=== PATIENT | female | born 1950 | race Hispanic/Latino ===

== ENCOUNTER 2018-04-27 08:36 | Inpatient (IN) | payer MEDICAID, SELFPAY ==
[2018-04-27 09:20] LABS: #Basophils 0.1 thou/uL (0.0-0.2); #Eosinphils 0.2 thou/uL (0.0-0.7); #Lymphocytes 1.5 thou/uL (1.20-3.40); #Monocytes 0.5 thou/uL (0.11-0.59); #Neutrophils 5.9 thou/uL (1.40-6.50); %Basophils 0.7 % (0.0-1.0); %Eosinophils 2.8 % (0.0-10.0); %Lymphocytes 18.8 % (21.0-51.0); %Monocytes 5.5 % (0.0-10.0); %Neutrophils 72.2 % (42.0-75.0); Mean Corpuscular HGB CONC 33.5 g/dL (32.0-36.0); Mean Corpuscular Hemoglobin 30.4 pg (27.0-31.0); Mean Corpuscular Volume 90.9 fL (78.0-98.0); Mean Platelet Volume 6.6 fL (7.4-10.4); Platelet Count 245 thou/uL (130-400); Red Blood Cell (RBC) Count 3.63 mill/uL (4.20-5.40); White Blood Cell (WBC) Count 8.1 thou/uL (4.8-10.8)
[2018-04-27 09:26] LABS: ALT (SGPT) 60 U/L (8-55); AST (SGOT) 51 U/L (5-34); Albumin 3.8 g/dL (3.4-4.8); Alkaline Phosphatase 249 U/L (40-150); Anion Gap 12 mmol/L (10-20); BUN (Urea Nitrogen) 11 mg/dL (9.8-20.1); Bilirubin, Total 0.9 mg/dL (0.2-1.2); Calc. Creatinine Clearance 0 mL/min (70-130); Calcium 9.2 mg/dL (7.8-10.44); Carbon Dioxide 25 mmol/L (23-31); Chloride 91 mmol/L (98-107); Estimated GFR-MDRD 63; Globulin 3.8 g/dL (2.4-3.5); Glucose 101 mg/dL (80-115); Potassium 4.6 mmol/L (3.5-5.1); Protein, Total 7.6 g/dL (6.0-8.3); Sodium 123 mmol/L (136-145)
[2018-04-27 10:16] LABS: Bilirubin Negative (Negative); Blood, Urine Trace (Negative); Clarity CLOUDY (Clear); Glucose, Urine (Dipstick) Negative (Negative); Leukocyte Moderate (Negative); Nitrite Positive (Negative); Protein, Urine (Dipstick) 30 mg/dL (Neg-Trace); Specific Gravity, Urine 1.017 (1.002-1.036); Urobilinogen 0.2 mg/dL (0.2-1.0); pH, Urine 6.5 (5.0-9.0)
[2018-04-27 10:18] LABS: Bacteria/HPF 1+ HPF (None Seen); Hyaline Casts/LPF 4-6 HYALINE CAST LPF (0-3 Hyaline); Pathc Cast-AUWi Flag 0.43 (0-2.49); RBC/HPF 0-3 HPF (0-3); Squamous Epithelial None Seen HPF (0-3)
--- NOTE | 2018-04-27 10:28 | RAD ---
PORTABLE CHEST: History: Cough. FINDINGS: Heart size and mediastinum are within normal limits. There are atherosclerotic changes of the aorta. The lungs are clear of infiltrate. Bones appear demineralized. IMPRESSION: No active intrathoracic disease. POS: [facility]
--- NOTE | 2018-04-27 10:49 | CT ---
HEAD CT WITHOUT CONTRAST: History: Weakness. Decreased po intake. Comparison: None. FINDINGS: No parenchymal hemorrhage. No extraaxial hematoma. No midline shift. Basilar cisterns are patent. Age appropriate atrophy. Cortical law white matter differentiation preserved. Ventricles and sulci are patent and symmetric. White matter hypodensities due to chronic small vessel ischemic change. There is left maxillary sinus and ethmoid air cell mucosal thickening. Mucosal thickening of the left sphenoid sinus is also noted. Adequate mastoid air cell aeration. Calvarium is intact. 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 IMPRESSION: No acute intracranial process. POS: [facility]
[2018-04-27] MEDS ORDERED: cefTRIAXone\\ROCEPHIN 2 GM VIAL ONE (10:57)
[2018-04-27] MEDS ORDERED: Acetaminophen 500 MG TAB ONE (11:21)
[2018-04-27] MEDS ORDERED: Benzonatate 100 MG CAP PO PRN (11:51)
[2018-04-27] MEDS ORDERED: Calcium Carbonate 500 MG ChewTAB PO PRN (11:51)
[2018-04-27] MEDS ORDERED: Ondansetron PF 4 MG/2 ML Vial IVP PRN ×2 (11:51)
[2018-04-27] MEDS ORDERED: Diabetic Tussin 200 MG/10 ML UDCUP PO PRN (11:51)
[2018-04-27] MEDS ORDERED: Bisacodyl 10 MG SUPP PR PRN (11:51)
[2018-04-27] MEDS ORDERED: Sodium Chloride 0.65% Nasal 44 ML BOT EA NARE PRN (11:51)
[2018-04-27] MEDS ORDERED: cloNIDine 0.1 MG TAB PO PRN (11:51)
[2018-04-27] MEDS ORDERED: Nitroglycerin 0.4 MG TAB (25 Tab Bottle) SL PRN (11:51)
[2018-04-27] MEDS ORDERED: Bisacodyl 5 MG TAB PO PRN (11:51)
[2018-04-27] MEDS ORDERED: Acetaminophen 650 MG Suppository PR PRN (11:51)
[2018-04-27] MEDS ORDERED: Acetaminophen 500 MG TAB PO PRN (11:51)
[2018-04-27] MEDS ORDERED: Senokot S 8.6-50 MG TAB PO PRN (11:51)
[2018-04-27] MEDS ORDERED: Ibuprofen 200 MG TAB PO PRN (11:51)
[2018-04-27] MEDS ORDERED: hydrALAZINE 20 MG/ML VIAL SLOW IVP PRN (11:51)
[2018-04-27] MEDS ORDERED: Levofloxacin 500 mg/D5W 100 ml Premix Bag ONE (12:02)
--- NOTE | 2018-04-27 14:20 | HP ---
DATE OF ADMISSION: 04/27/2018 CHIEF COMPLAINT: Generalized weakness and seizure. HISTORY OF PRESENTING ILLNESS: Ms. Hampton is a 67-year-old [place] national without any significant past medical history except for seizures, who presented to the emergency room with the above-mention ed complaint. History is mainly obtained by the patient's family members present in the room as the patient is somnolent and [place] speaking only and does not want to participate in the conversation. According to the family members, she has been feeling unwell for the last many months, but presented to [facility] only 2 or 3 days ago, so they decided to bring her here. The main complaint is gene ralized weakness and poor oral intake. They also report that she has been diagnosed with seizures an d has been having seizures at home which seemed to be generalized tonic clonic by their description. They also report that she was told in [place] that she has "worms" in her brain causing her to have s eizures and she should not eat pork. When I further asked them, they said that it has not been treat ed and they do not have any further information with regards to this. She has 1 or 2 episodes of vom iting, but denies any diarrhea or abdominal pain. She also has been having low-grade fevers at home and was febrile in the ER today. The patient denies any chest pain or shortness of breath. She kat es any problems with urination. In the emergency room, she was found to have a fever of 101.2 rectally. Otherwise, hemodynamically s table except for tachycardia with a heart rate of 102-103. She was resuscitated with IV fluids and h er initial workup showed hyponatremia with sodium of 123. Liver enzymes are elevated. Lactic acid i s normal. Urinalysis consistent with UTI. She was given empiric IV antibiotic for UTI, namely Rocephin and levofloxacin, and a CT scan of the b rain was done which did not show any acute or chronic abnormality. She does have some mucosal thicke daphney of her sinuses, but there is no mention of any cysts or calcifications of the brain parenchyma. A chest x-ray was also done which did not show any active intrathoracic disease. She is now being admitted to tele floor for sepsis. The patient has been seen by [facility] since she has presented to [facility]. She has been started on Keppra since then 250 mg twice a day and she had a seizure despite taking that. PAST MEDICAL HISTORY: History of seizures. PAST SURGICAL HISTORY: None. PSYCHIATRIC HISTORY: No anxiety, no depression. SOCIAL HISTORY: She lives normally in [place], but is [place] in the [place] to her [place]. No hist ory of drug, tobacco or alcohol abuse. She has been exposed to cocaine smokes from burning wood. FAMILY HISTORY: Some family members with diabetes. Otherwise, she denies any history of premature c oronary artery disease or stroke or cancers running in her family. REVIEW OF SYSTEMS: A 12-point review of systems is done except for those mentioned in the history an d physical. CODE STATUS: FULL CODE. Discussed with the patient and her family members. LABORATORY DATA: CBC shows WBCs 8.1 with platelet count of 246, hemoglobin 11. Serum chemistry show s sodium of 123, chloride 91, otherwise unremarkable. Her AST is 51, ALT 16, alkaline phosphatase 24 9. Urinalysis shows positive nitrite, leukocyte esterase, multiple wbc's and bacteria. Keppra level is 7.7. PHYSICAL EXAMINATION: VITAL SIGNS: Upon presentation, pulse of 110, respirations 12, saturating 94% on room air, temperatu re max 101.2, blood pressure 143/95. GENERAL: No acute distress, lying comfortably in bed, awake, alert, oriented x3. Follows simple com mands. HEENT: Mucous membranes are slightly dry. No oropharyngeal exudate or erythema. Head is normocepha lic, atraumatic. Pupils are equal and reactive to light and accommodation. Extraocular movement in tact. NECK: Supple without any lymphadenopathy, JVD or bruit. CHEST: Clear to auscultation without any wheezing, rales or rhonchi. Rate and rhythm is regular wit hout any murmur, rubs or gallops. ABDOMEN: Soft, nondistended, nontender, no right upper quadrant tenderness. EXTREMITIES: Free of any cyanosis, clubbing, or edema. NEUROLOGIC: Examination is nonfocal. SKIN: Free of any rashes or bruises. Feels warm and dry to touch. IMPRESSION AND PLAN: 1. Sepsis, likely secondary to urinary tract infection. We will continue her on broad spectrum IV a ntibiotic with high dose Rocephin and vancomycin. Urine culture and blood cultures have been obtaine d in the ER and we will follow the results. No other source is obvious at this time. She will be co ntinued on gentle IV fluids. 2. Hypochloremic hyponatremia. The patient does appear somewhat volume down. She will be resuscita matthew with gentle IV fluids at 50 mL per hour. We will recheck sodium every few hours and consult Neph rology for further evaluation. There is a possibility that this is secondary to SIADH. 3. Elevated liver enzymes. Etiology is unclear at this time. We will obtain right upper quadrant u ltrasound to further assess the liver. The patient does give some history of possible diagnosis of T APE 1. 4. Breakthrough seizures. We will increase the Keppra to 500 p.o. b.i.d. for now. 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 At this time, CT scan did not show any calcificati ons or active cysts. We will obtain MRI for further delineation on diagnosis if this is a true neuro cysticercosis. Continue seizure medication for now. We will also sent IGG for cysticercosis. If th e diagnosis is confirmed, we will consult ID for treatment options including albendazole with prednis one. At this time, I do not believe that her seizures are because of the hyponatremia which seems mo re chronic. 5. Chronic anemia. The patient is on iron supplements and we will continue that for now. 6. Code status: FULL CODE. Discussed with the patient and her family. 7. Deep venous thrombosis and gastrointestinal prophylaxis and supportive care and add p.r.n. medica tions. DISPOSITION: Ms. Hampton is currently being admitted to the hospital for sepsis, breakthrough seizur es and hyponatremia. Estimated length of stay at this time is at least 2-3 midnights. Further manag ement will depend upon her clinical course.
[2018-04-27 14:37] LABS: Sodium 123 mmol/L (136-145)
[2018-04-27] MEDS ORDERED: Vancomycin HCl 1 GM in Premix Bag 1 BAG IVPB SCH ×2 (16:45→21:00)
--- NOTE | 2018-04-27 16:54 | MRI ---
BRAIN MRI WITH AND WITHOUT CONTRAST: Date: 04/27/18 INDICATION: Neurocysticercosis. History of seizure. Reference made to head CT from earlier same day. FINDINGS: There is bilateral periventricular white matter signal alteration. No acute territorial infarction, m ass effect, or midline shift. There is prominence of the ventricular system, which likely relates to parenchymal volume loss. There is no pathologic intra-axial enhancement. There is scattered paranasal sinus mucosal inflammation. Imaged skull base flow-voids reveal no significant abnormality. IMPRESSION: 1. No definite acute intracranial abnormality. 2. Periventricular signal abnormalities which may be related to mild chronic ischemic disease. POS: [facility]
[2018-04-27] MEDS: Sodium Chloride 0.9% 1,000 ML IV SCH (18:07)
[2018-04-27 19:14] VITALS: BMI 22.1
[2018-04-27 20:29] LABS: Sodium 122 mmol/L (136-145)
[2018-04-27] MEDS: Famotidine/PF 20 mg/2ml Vial SLOW IVP SCH (21:12)
[2018-04-27] MEDS: levETIRAcetam 500 MG TAB PO SCH (21:12)
[2018-04-27 22:26] LABS: Osmolality, Urine 593 mOsm/kg (300-900)
[2018-04-27 22:35] LABS: Sodium, Urine 145 mmol/L (Not Available)
--- NOTE | 2018-04-28 04:35 | CON ---
DATE OF CONSULTATION: 04/27/2018 NEPHROLOGY CONSULT NOTE CONSULTING PHYSICIAN: Dr. Turner. REASON FOR CONSULTATION: Hyponatremia. REASON FOR ADMISSION: Weakness. HISTORY OF PRESENT ILLNESS: This is a 67-year-old female with history of seizure disorder, who came to the hospital with weakness and was found to have a low sodium. Nephrology is consulted. Patient's sodium is 123 right now about baseline sodium. Patient was awake when I saw her. No naus ea, vomiting, and no dehydration reported. No fever or chills. PAST MEDICAL HISTORY: Possible seizure disorder. PAST SURGICAL HISTORY: None. HOME MEDICATIONS: Keppra and iron. ALLERGIES: No known drug allergies. SOCIAL HISTORY: No smoking, alcohol, or illicit drug abuse. FAMILY HISTORY: Positive for diabetes. REVIEW OF SYSTEMS: The following complete review of systems was negative, unless otherwise mentioned in the HPI or below: Constitutional: Weight loss or gain, ability to conduct usual activities. Sk in: Rash, itching. Eyes: Double vision, pain. ENT/Mouth: Nose bleeding, neck stiffness, pain, te nderness. Cardiovascular: Palpitations, dyspnea on exertion, orthopnea. Respiratory: Shortness of breath, wheezing, cough, hemoptysis, fever, or night sweats. Gastrointestinal: Poor appetite, abdo pau pain, heartburn, nausea, vomiting, constipation, or diarrhea. Genitourinary: Urgency, frequen cy, dysuria, nocturia. Musculoskeletal: Pain, swelling. Neurologic/Psychiatric: Anxiety, depressi on. Allergy/Immunologic: Skin rash, bleeding tendency. PHYSICAL EXAMINATION: GENERAL: This is a thin-built female in no apparent distress. VITAL SIGNS: Temperature 97.3, pulse 72, respiratory rate 18, blood pressure 152/67. HEENT: Atraumatic, normocephalic. Oral mucosa is moist. NECK: Supple. HEART: S1, S2. Rate and rhythm regular. RESPIRATORY: Clear. GI: Abdomen is soft. MUSCULOSKELETAL: . DERMATOLOGIC: No skin rash. NEUROLOGIC: Alert, awake. PSYCHIATRIC: Mood and affect normal. LABORATORY AND X-RAY FINDINGS: Hemoglobin is 11.0. Potassium is 4.6, sodium 123, BUN is 11, creatin ine is 0.9. Urine with pyuria. ASSESSMENT AND PLAN: 1. Hyponatremia. Check osmolality and urine studies. 2. Hypochloremia. 3. Edema, controlled. 4. Hypertension. 5. Mild anemia. 6. We will check urine studies, we will hydrate her slowly with NS at 50 mL per hour, monitor sodium q.6 hours. We will follow.
[2018-04-28 06:12] LABS: #Eosinphils 0.4 thou/uL (0.0-0.7); #Lymphocytes 1.4 thou/uL (1.20-3.40); #Monocytes 0.4 thou/uL (0.11-0.59); #Neutrophils 3.6 thou/uL (1.40-6.50); %Basophils 0.1 % (0.0-1.0); %Eosinophils 6.3 % (0.0-10.0); %Monocytes 6.8 % (0.0-10.0); %Neutrophils 61.9 % (42.0-75.0); Hemoglobin 10.6 g/dL (12.0-16.0); Mean Corpuscular HGB CONC 33.5 g/dL (32.0-36.0); Mean Corpuscular Hemoglobin 30.6 pg (27.0-31.0); Mean Corpuscular Volume 91.5 fL (78.0-98.0); Mean Platelet Volume 6.7 fL (7.4-10.4); Platelet Count 235 thou/uL (130-400); Red Blood Cell (RBC) Count 3.47 mill/uL (4.20-5.40); White Blood Cell (WBC) Count 5.8 thou/uL (4.8-10.8)
[2018-04-28 06:31] LABS: Anion Gap 13 mmol/L (10-20); BUN (Urea Nitrogen) 7 mg/dL (9.8-20.1); Calc. Creatinine Clearance 42 mL/min (70-130); Calcium 9.3 mg/dL (7.8-10.44); Carbon Dioxide 23 mmol/L (23-31); Chloride 91 mmol/L (98-107); Estimated GFR-MDRD 70; Glucose 90 mg/dL (80-115); Potassium 4.4 mmol/L (3.5-5.1); Sodium 123 mmol/L (136-145)
[2018-04-28 06:49] LABS: Thyroid Stimulating Hormone 2.1637 uIU/mL (0.35-4.94)
[2018-04-28] MEDS ORDERED: Tolvaptan 15 MG TAB PO SCH (07:00)
[2018-04-28] MEDS: levETIRAcetam 500 MG TAB PO SCH ×2 (08:02→20:37)
[2018-04-28] MEDS: Famotidine/PF 20 mg/2ml Vial SLOW IVP SCH ×2 (08:02→20:37)
[2018-04-28] MEDS: Enoxaparin Sodium 40 MG/0.4 ML SYRINGE SC SCH (08:02)
[2018-04-28] MEDS: Sodium Chloride 0.9% 1,000 ML IV SCH ×2 (08:03→17:22)
--- NOTE | 2018-04-28 09:27 | ULT ---
GALLBLADDER ULTRASOUND: Indication: Elevated LFTs FINDINGS: There is increased echogenicity in the liver without evidence of discrete lesion. No acute gallbladde r pathology. Patel's sign is reported as negative. There is normal sized common duct at 2 mm in diam eter. No ascites. IMPRESSION: 1. Increased echogenicity of the liver which can be seen in the setting of hepatic steatosis. 2. No acute gallbladder pathology. POS: [facility]
[2018-04-28] MEDS: cefTRIAXone\\ROCEPHIN 2 GM in Sodium Chloride 0.9% 100 ML IVPB SCH (11:15)
[2018-04-28] MEDS: Acetaminophen 325 MG TAB PO PRN ×2 (11:18→20:43)
--- NOTE | 2018-04-28 11:36 | PRG ---
DATE OF SERVICE: 04/28/2018. SUBJECTIVE: Patient was seen and examined at bedside and overnight events noted. Patient denies any shortness of breath or chest pain or palpitation. No history of nausea or vomiting or diarrhea or f ever or chills or cramps. OBJECTIVE: GENERAL: This is an elderly female in no apparent distress. VITAL SIGNS: Temperature 97.7, pulse 83, respirations 16, blood pressure 151/71. HEENT: Atraumatic, normocephalic. Oral mucosa is moist. NECK: Supple. CARDIOVASCULAR: S1, S2 heard. Rate and rhythm regular. RESPIRATORY: Clear to auscultation. GASTROINTESTINAL: Abdomen is soft. MUSCULOSKELETAL: No tenderness, no edema. DERMATOLOGIC: No skin rash. NEUROLOGIC: Alert and awake and oriented x3. No focal neurologic deficits. Moving all the extremit ies. PSYCHIATRIC: Mood and affect normal. LABORATORY DATA: Sodium is 123. Cortisol TSH is 2.1. Urine osmolality is 145. Serum osmolal ity is . ASSESSMENT AND PLAN: 1. Hyponatremia. Clinical picture and lab work suggests syndrome of inappropriate antidiuretic horm one secretion. No improvement with IV fluids. Plan is to continue IV fluids per sepsis protocol, bu t we would add tolvaptan and we will follow. 2. Hypochloremia. 3. Edema, controlled. 4. Hypertension. Plan is to start on tolvaptan with close monitoring of sodium.
[2018-04-28] MEDS ORDERED: Vancomycin HCl 500 MG in Sodium Chloride 0.9% 100 ML IVPB SCH (18:00)
[2018-04-29 05:22] LABS: Potassium 4.1 mmol/L (3.5-5.1)
[2018-04-29 08:45] LABS: Anion Gap 11 mmol/L (10-20); BUN (Urea Nitrogen) 6 mg/dL (9.8-20.1); Calc. Creatinine Clearance 42 mL/min (70-130); Calcium 9.3 mg/dL (7.8-10.44); Carbon Dioxide 26 mmol/L (23-31); Chloride 109 mmol/L (98-107); Estimated GFR-MDRD 68; Glucose 100 mg/dL (80-115); Potassium 3.9 mmol/L (3.5-5.1); Sodium 142 mmol/L (136-145)
[2018-04-29] MEDS: Famotidine/PF 20 mg/2ml Vial SLOW IVP SCH (09:40)
[2018-04-29] MEDS: levETIRAcetam 500 MG TAB PO SCH ×2 (09:40→20:34)
[2018-04-29] MEDS: Enoxaparin Sodium 40 MG/0.4 ML SYRINGE SC SCH (09:40)
[2018-04-29] MEDS: cefTRIAXone\\ROCEPHIN 2 GM in Sodium Chloride 0.9% 100 ML IVPB SCH (12:14)
[2018-04-29] MEDS: Dextrose 5% in Water 500 ML IV SCH ×2 (12:14→16:17)
[2018-04-29 13:15] LABS: Potassium 4.2 mmol/L (3.5-5.1)
--- NOTE | 2018-04-29 14:14 | PDOC.PN ---
- Subjective Encounter Start Date: 04/28/18 Encounter Start Time: 12:15 Subjective: pt up in bed no complains - Objective Vital Signs & Weight: Vital Signs (12 hours) Temp Pulse Resp BP BP Pulse Ox 04/29/18 12:10 98.3 F 90 16 136/65 95 04/29/18 07:35 94 L 04/29/18 07:34 97.5 F L 94 16 147/72 H 94 L 04/29/18 04:00 97.7 F 85 20 152/71 H 95 Weight Weight 90 lb 11.2 oz I&O: 04/28/18 04/29/18 04/30/18 06:59 06:59 06:59 Intake Total 140 1750 Balance 140 1750 Result Diagrams: 04/28/18 05:32 04/29/18 11:47 Phys Exam - Physical Examination Neck: no nodes, no JVD, supple, full ROM Respiratory: no wheezing, no rales, no rhonchi, wheezing present, clear to auscultation bilateral Cardiovascular: RRR, no significant murmur, no rub, gallop, irregular Gastrointestinal: soft, non-tender, no distention, positive bowel sounds Musculoskeletal: no edema, pulses present, edema present Dx/Plan (1) Acute metabolic encephalopathy Code(s): G93.41 - METABOLIC ENCEPHALOPATHY Status: Acute (2) Hyponatremia Code(s): E87.1 - HYPO-OSMOLALITY AND HYPONATREMIA Status: Acute (3) UTI (urinary tract infection) Status: Acute - Plan pt up in bed feels better -: SIADH unknown etiology -: continue abx for now will will change to po * . Review of Systems - Review of Systems Respiratory: negative: Cough, Dry, Shortness of Breath, Hemoptysis, SOB with Excertion, Pleuritic Pain, Sputum, Wheezing Cardiovascular: negative: chest pain, palpitations, orthopnea, paroxysmal nocturnal dyspnea, edema, light headedness, other Gastrointestinal: negative: Nausea, Vomiting, Abdominal Pain, Diarrhea, Constipation, Melena, Hematochezia, Other - Medications/Allergies Allergies/Adverse Reactions: Allergies Allergy/AdvReac Type Severity Reaction Status Date / Time No Known Drug Allergies Allergy Verified 04/27/18 19:12 Medications: Current Medications Acetaminophen (Tylenol) 650 mg PO Q4H PRN PRN Reason: Headache/Fever/Mild Pain (1-3) Last Admin: 04/28/18 20:43 Dose: 650 mg Acetaminophen (Tylenol) 650 mg [place] Q4H PRN PRN Reason: Fever > 101 Benzonatate (Tessalon) 100 mg PO Q6H PRN PRN Reason: Cough Bisacodyl (Dulcolax) 10 mg PO DAILYPRN PRN PRN Reason: Constipation Bisacodyl (Dulcolax) 10 mg [place] DAILYPRN PRN PRN Reason: Constipation Calcium Carbonate (Tums) 1,000 mg PO Q4H PRN PRN Reason: Heartburn or Indigestion Clonidine (Catapres) 0.1 mg PO Q4H PRN PRN Reason: SBP > 160____ Enoxaparin Sodium (Lovenox) 40 mg SC 0900 [facility] Last Admin: 04/29/18 09:40 Dose: 40 mg Famotidine (Pepcid) 20 mg SLOW IVP Q12HR [facility] Last Admin: 04/29/18 09:40 Dose: 20 mg Guaifenesin (Robitussin Sf) 200 mg PO Q4H PRN PRN Reason: Cough Hydralazine HCl (Apresoline) 10 mg SLOW IVP Q4H PRN PRN Reason: SBP > 180 and HR < 70 Ceftriaxone Sodium 2 gm/ (Sodium Chloride) 100 mls @ 200 mls/hr IVPB Q24HR@ 1100 [facility] Last Admin: 04/29/18 12:14 Dose: 100 mls Dextrose/Water (D5w) 500 mls @ 100 mls/hr IV .Q5H [facility] Last Admin: 04/29/18 12:14 Dose: 500 mls Ibuprofen (Motrin) 400 mg PO Q4H PRN PRN Reason: Fever > 101 Levetiracetam (Keppra) 500 mg PO BID [facility] Last Admin: 04/29/18 09:40 Dose: 500 mg Miscellaneous Medication (Pharmacy To Dose) 1 each IVPB PRN PRN PRN Reason: SEPSIS Nitroglycerin (Nitrostat) 0.4 mg SL Q5MIN PRN PRN Reason: Chest Pain Ondansetron HCl (Zofran) 4 mg IVP Q6H PRN PRN Reason: Nausea/Vomiting Senna/Docusate Sodium (Senokot S) 2 tab PO BID PRN PRN Reason: Constipation Sodium Chloride ([place] Nasal [place] 0.65%) 0 ml EA NARE QIDPRN PRN PRN Reason: Nasal Congestion
--- NOTE | 2018-04-29 14:20 | PDOC.PN ---
- Subjective Encounter Start Date: 04/29/18 Encounter Start Time: 10:30 Subjective: pt up in bed no complains - Objective Vital Signs & Weight: Vital Signs (12 hours) Temp Pulse Resp BP BP Pulse Ox 04/29/18 12:10 98.3 F 90 16 136/65 95 04/29/18 07:35 94 L 04/29/18 07:34 97.5 F L 94 16 147/72 H 94 L 04/29/18 04:00 97.7 F 85 20 152/71 H 95 Weight Weight 90 lb 11.2 oz I&O: 04/28/18 04/29/18 04/30/18 06:59 06:59 06:59 Intake Total 140 1750 Balance 140 1750 Result Diagrams: 04/28/18 05:32 04/29/18 11:47 Phys Exam - Physical Examination Neck: no nodes, no JVD, supple, full ROM Respiratory: no wheezing, no rales, no rhonchi, wheezing present, clear to auscultation bilateral Cardiovascular: RRR, no significant murmur, no rub, gallop, irregular Gastrointestinal: soft, non-tender, no distention, positive bowel sounds Dx/Plan (1) Acute metabolic encephalopathy Code(s): G93.41 - METABOLIC ENCEPHALOPATHY Status: Acute (2) Hyponatremia Code(s): E87.1 - HYPO-OSMOLALITY AND HYPONATREMIA Status: Acute (3) UTI (urinary tract infection) Status: Acute - Plan pt's Na is 140 called nephrology will give pt d5w for 500. -: will change abx to po -: possible diacharge in am * . Review of Systems - Review of Systems Respiratory: negative: Cough, Dry, Shortness of Breath, Hemoptysis, SOB with Excertion, Pleuritic Pain, Sputum, Wheezing Cardiovascular: negative: chest pain, palpitations, orthopnea, paroxysmal nocturnal dyspnea, edema, light headedness, other Gastrointestinal: negative: Nausea, Vomiting, Abdominal Pain, Diarrhea, Constipation, Melena, Hematochezia, Other - Medications/Allergies Allergies/Adverse Reactions: Allergies Allergy/AdvReac Type Severity Reaction Status Date / Time No Known Drug Allergies Allergy Verified 04/27/18 19:12 Medications: Current Medications Acetaminophen (Tylenol) 650 mg PO Q4H PRN PRN Reason: Headache/Fever/Mild Pain (1-3) Last Admin: 04/28/18 20:43 Dose: 650 mg Acetaminophen (Tylenol) 650 mg [place] Q4H PRN PRN Reason: Fever > 101 Benzonatate (Tessalon) 100 mg PO Q6H PRN PRN Reason: Cough Bisacodyl (Dulcolax) 10 mg PO DAILYPRN PRN PRN Reason: Constipation Bisacodyl (Dulcolax) 10 mg [place] DAILYPRN PRN PRN Reason: Constipation Calcium Carbonate (Tums) 1,000 mg PO Q4H PRN PRN Reason: Heartburn or Indigestion Clonidine (Catapres) 0.1 mg PO Q4H PRN PRN Reason: SBP > 160____ Enoxaparin Sodium (Lovenox) 40 mg SC 0900 [facility] Last Admin: 04/29/18 09:40 Dose: 40 mg Famotidine (Pepcid) 20 mg SLOW IVP Q12HR [facility] Last Admin: 04/29/18 09:40 Dose: 20 mg Guaifenesin (Robitussin Sf) 200 mg PO Q4H PRN PRN Reason: Cough Hydralazine HCl (Apresoline) 10 mg SLOW IVP Q4H PRN PRN Reason: SBP > 180 and HR < 70 Ceftriaxone Sodium 2 gm/ (Sodium Chloride) 100 mls @ 200 mls/hr IVPB Q24HR@ 1100 [facility] Last Admin: 04/29/18 12:14 Dose: 100 mls Dextrose/Water (D5w) 500 mls @ 100 mls/hr IV .Q5H [facility] Last Admin: 04/29/18 12:14 Dose: 500 mls Ibuprofen (Motrin) 400 mg PO Q4H PRN PRN Reason: Fever > 101 Levetiracetam (Keppra) 500 mg PO BID [facility] Last Admin: 04/29/18 09:40 Dose: 500 mg Miscellaneous Medication (Pharmacy To Dose) 1 each IVPB PRN PRN PRN Reason: SEPSIS Nitroglycerin (Nitrostat) 0.4 mg SL Q5MIN PRN PRN Reason: Chest Pain Ondansetron HCl (Zofran) 4 mg IVP Q6H PRN PRN Reason: Nausea/Vomiting Senna/Docusate Sodium (Senokot S) 2 tab PO BID PRN PRN Reason: Constipation Sodium Chloride ([place] Nasal [place] 0.65%) 0 ml EA NARE QIDPRN PRN PRN Reason: Nasal Congestion
[2018-04-29] MEDS ORDERED: Furosemide 20 MG/2 ML VIAL SLOW IVP SCH (15:45)
--- NOTE | 2018-04-29 17:09 | PRG ---
DATE OF SERVICE: 04/29/2018 SUBJECTIVE: Patient was seen and examined at bedside and overnight events noted. Patient denies any shortness of breath or chest pain or palpitation. No history of nausea or vomiting or diarrhea or fever or chills or cramps. OBJECTIVE: GENERAL: This is an elderly female, in no apparent distress. VITAL SIGNS: Temperature 98.3, heart rate 92, respiratory rate 16, blood pressure 136/60. HEENT: Atraumatic, normocephalic. Oral mucosa is moist NECK: Supple. CARDIOVASCULAR: S1, S2 heard. Rate and rhythm regular. RESPIRATORY: Clear to auscultation. GASTROINTESTINAL: Abdomen is soft. MUSCULOSKELETAL: No tenderness. No edema. DERMATOLOGIC: No skin rash. NEUROLOGIC: Alert and awake and oriented X3. No focal neurologic deficits. Moving all the extremities. PSYCHIATRIC: Mood and affect normal. LABORATORY DATA: Sodium is 140, potassium is 4.2. ASSESSMENT AND PLAN: 1. Hyponatremia with overcorrection in sodium. Plan is to give D5W today 500 mL and monitor sodium closely. 2. . 3. Hypertension, stable. We will lower the sodium . Plan discussed with Dr. Mancini. Job ID: [id number]
[2018-04-29 17:36] LABS: Vancomycin, Trough 6.1 ug/mL
[2018-04-29 18:56] LABS: Potassium 3.5 mmol/L (3.5-5.1)
[2018-04-29] MEDS: Cefuroxime Axetil 250 MG TAB PO SCH (20:34)
[2018-04-30 05:50] LABS: Anion Gap 12 mmol/L (10-20); BUN (Urea Nitrogen) 8 mg/dL (9.8-20.1); Calc. Creatinine Clearance 39 mL/min (70-130); Calcium 9.2 mg/dL (7.8-10.44); Carbon Dioxide 27 mmol/L (23-31); Chloride 101 mmol/L (98-107); Estimated GFR-MDRD 68; Glucose 92 mg/dL (80-115); Potassium 3.9 mmol/L (3.5-5.1); Sodium 136 mmol/L (136-145)
[2018-04-30] MEDS: levETIRAcetam 500 MG TAB PO SCH ×2 (08:40→20:53)
[2018-04-30] MEDS: Enoxaparin Sodium 40 MG/0.4 ML SYRINGE SC SCH (08:40)
[2018-04-30] MEDS: Cefuroxime Axetil 250 MG TAB PO SCH ×2 (08:40→20:53)
[2018-04-30] MEDS ORDERED: predniSONE 20 MG TAB PO SCH (10:00)
[2018-04-30 11:22] LABS: Cysticercus IgG AB Negative (Negative)
--- NOTE | 2018-04-30 11:26 | PRG ---
DATE OF SERVICE: 04/30/2018 SUBJECTIVE: Patient was seen and examined at bedside and overnight events noted. Patient denies any shortness of breath or chest pain or palpitation. No history of nausea or vomiting or diarrhea or fever or chills or cramps. OBJECTIVE: GENERAL: This is a well-built female, in no apparent distress. VITAL SIGNS: Temperature . HEENT: Atraumatic, normocephalic. Oral mucosa is moist NECK: Supple. CARDIOVASCULAR: S1, S2 heard. Rate and rhythm regular. RESPIRATORY: Clear to auscultation. GASTROINTESTINAL: Abdomen is soft. MUSCULOSKELETAL: No tenderness. No edema. DERMATOLOGIC: No skin rash. NEUROLOGIC: Alert and awake and oriented X3. No focal neurologic deficits. Moving all the extremities. PSYCHIATRIC: Mood and affect normal. LABORATORY DATA: Potassium is 3.9, sodium is ASSESSMENT AND PLAN: 1. Hyponatremia with adequate correction. 2. Hypochloremia. 3. Hypertension. 4. Edema, controlled. Sodium level is stable. We will follow. Job ID: [id number]
--- NOTE | 2018-04-30 14:04 | PDOC.PN ---
- Subjective Encounter Start Date: 04/30/18 Encounter Start Time: 10:30 Subjective: pt up in bed no complains - Objective Vital Signs & Weight: Vital Signs (12 hours) Temp Pulse Resp BP BP Pulse Ox 04/30/18 11:29 84 16 95 04/30/18 11:06 97.7 F 82 18 140/64 94 L 04/30/18 07:26 98.6 F 90 16 120/58 L 97 04/30/18 04:00 98.7 F 94 15 117/62 96 Weight Weight 84 lb 9.6 oz I&O: 04/29/18 04/30/18 05/01/18 06:59 06:59 06:59 Intake Total 1750 2256 Balance 1750 2256 Result Diagrams: 04/28/18 05:32 04/30/18 05:16 Phys Exam - Physical Examination Neck: no nodes, no JVD, supple, full ROM Respiratory: wheezing present Cardiovascular: RRR, no significant murmur, no rub, gallop, irregular Gastrointestinal: soft, non-tender, no distention, positive bowel sounds Dx/Plan (1) Acute metabolic encephalopathy Code(s): G93.41 - METABOLIC ENCEPHALOPATHY Status: Acute (2) Hyponatremia Code(s): E87.1 - HYPO-OSMOLALITY AND HYPONATREMIA Status: Acute (3) UTI (urinary tract infection) Status: Acute - Plan pt has no smoking hx but has been using wood burner for cooking -: will start pt on some steroids and duonebs -: continue po abx for uti -: possible discharge in am * . Review of Systems - Review of Systems Cardiovascular: negative: chest pain, palpitations, orthopnea, paroxysmal nocturnal dyspnea, edema, light headedness, other Gastrointestinal: negative: Nausea, Vomiting, Abdominal Pain, Diarrhea, Constipation, Melena, Hematochezia, Other Genitourinary: negative: Dysuria, Frequency, Incontinence, Hematuria, Retention , Other - Medications/Allergies Allergies/Adverse Reactions: Allergies Allergy/AdvReac Type Severity Reaction Status Date / Time No Known Drug Allergies Allergy Verified 04/27/18 19:12 Medications: Current Medications Acetaminophen (Tylenol) 650 mg PO Q4H PRN PRN Reason: Headache/Fever/Mild Pain (1-3) Last Admin: 04/28/18 20:43 Dose: 650 mg Acetaminophen (Tylenol) 650 mg [place] Q4H PRN PRN Reason: Fever > 101 Albuterol/Ipratropium (Duoneb) 3 ml NEB [id number] [facility] Last Admin: 04/30/18 11:29 Dose: 3 ml Atorvastatin Calcium (Lipitor) 10 mg PO HS [facility] Benzonatate (Tessalon) 100 mg PO Q6H PRN PRN Reason: Cough Bisacodyl (Dulcolax) 10 mg PO DAILYPRN PRN PRN Reason: Constipation Bisacodyl (Dulcolax) 10 mg [place] DAILYPRN PRN PRN Reason: Constipation Calcium Carbonate (Tums) 1,000 mg PO Q4H PRN PRN Reason: Heartburn or Indigestion Cefuroxime Axetil (Ceftin) 250 mg PO Q12HR [facility] Last Admin: 04/30/18 08:40 Dose: 250 mg Clonidine (Catapres) 0.1 mg PO Q4H PRN PRN Reason: SBP > 160____ Enoxaparin Sodium (Lovenox) 40 mg SC 0900 [facility] Last Admin: 04/30/18 08:40 Dose: 40 mg Guaifenesin (Robitussin Sf) 200 mg PO Q4H PRN PRN Reason: Cough Hydralazine HCl (Apresoline) 10 mg SLOW IVP Q4H PRN PRN Reason: SBP > 180 and HR < 70 Ibuprofen (Motrin) 400 mg PO Q4H PRN PRN Reason: Fever > 101 Levetiracetam (Keppra) 500 mg PO BID [facility] Last Admin: 04/30/18 08:40 Dose: 500 mg Nitroglycerin (Nitrostat) 0.4 mg SL Q5MIN PRN PRN Reason: Chest Pain Ondansetron HCl (Zofran) 4 mg IVP Q6H PRN PRN Reason: Nausea/Vomiting Prednisone (Prednisone) 40 mg PO QAM-WM [facility] Senna/Docusate Sodium (Senokot S) 2 tab PO BID PRN PRN Reason: Constipation Sodium Chloride ([place] Nasal [place] 0.65%) 0 ml EA NARE QIDPRN PRN PRN Reason: Nasal Congestion
[2018-04-30] MEDS ORDERED: Atorvastatin Calcium 10 MG TAB PO SCH (21:00)
[2018-05-01] MEDS ORDERED: predniSONE 20 MG TAB PO SCH (08:00)
[2018-05-01] MEDS: Enoxaparin Sodium 40 MG/0.4 ML SYRINGE SC SCH (09:33)
[2018-05-01] MEDS: levETIRAcetam 500 MG TAB PO SCH (09:33)
[2018-05-01] MEDS: Cefuroxime Axetil 250 MG TAB PO SCH (09:33)
[2018-05-01 11:02] LABS: Anion Gap 13 mmol/L (10-20); BUN (Urea Nitrogen) 9 mg/dL (9.8-20.1); Calc. Creatinine Clearance 39 mL/min (70-130); Calcium 9.8 mg/dL (7.8-10.44); Carbon Dioxide 27 mmol/L (23-31); Chloride 98 mmol/L (98-107); Estimated GFR-MDRD 68; Glucose 110 mg/dL (80-115); Potassium 3.2 mmol/L (3.5-5.1); Sodium 135 mmol/L (136-145)
[2018-05-01 12:06] VITALS: BP 120/57; TEMP 98
--- NOTE | 2018-05-01 16:27 | PRG ---
DATE OF SERVICE: 05/01/2018 SUBJECTIVE: Patient was seen and examined at bedside and overnight events noted. Patient denies any shortness of breath or chest pain or palpitation. No history of nausea or vomiting or diarrhea or fever or chills or cramps. OBJECTIVE: GENERAL: This is a well-built female, in no apparent distress. VITAL SIGNS: Temperature 97, heart rate 100, respiratory rate 20, blood pressure 120/57. HEENT: Atraumatic, normocephalic. Oral mucosa is moist NECK: Supple. CARDIOVASCULAR: S1, S2 heard. Rate and rhythm regular. RESPIRATORY: Clear to auscultation. GASTROINTESTINAL: Abdomen is soft. MUSCULOSKELETAL: No tenderness. No edema. DERMATOLOGIC: No skin rash. NEUROLOGIC: Alert and awake and oriented X3. No focal neurologic deficits. Moving all the extremities. PSYCHIATRIC: Mood and affect normal. LABORATORY DATA: Potassium is 3.2, BUN is 13, creatinine is 0.8. ASSESSMENT AND PLAN: 1. Hyponatremia, stable. 2. Hypochloremia, stable. 3. Hypertension. 4. Mild hyperkalemia. 5. Edema, controlled. Limit fluid take. Followup with primary care. Job ID: [id number]
--- NOTE | 2018-05-02 05:54 | DIS ---
DATE OF ADMISSION: 04/27/2018 DATE OF DISCHARGE: 05/01/2018 DISCHARGE DIAGNOSES: 1. Acute metabolic encephalopathy. 2. Hyponatremia. 3. Urinary tract infection. 4. Sepsis. 5. Seizure. HOSPITAL COURSE: The patient is a very pleasant 67-year-old female, who is a [place] resident, who came into the hospital for altered mental status, who presented to the hospital with acute metabolic encephalopathy. 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 She was seen by the Nephrology and was given Tolvaptan, which increased her sodium dramatically. Given her history of seizures, her Keppra was also increased to 500 mg b.i.d. 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 At this time, CT head was done and also followed by an MRI brain. The MRI brain did not indicate any abnormalities, it just indicates a perivascular signal abnormalities, which may be related to mild chronic ischemic disease. The patient continued to improve throughout the hospital stay. Also she had some mild rhonchi that was noted in her lung area. At this time, she was put on some Medrol Dosepak and also was put on some DuoNebs. The patient does use a stove oven to cook back home in [place]. I have told the family to follow up the patient with the primary care doctor. She also had an abdominal ultrasound which did not indicate any acute abnormalities. It indicated only increased echogenicity of the liver consistent with hepatic steatosis and no gallbladder pathology. I did notify the family about the hepatic steatosis and recommended a low fat diet. PHYSICAL EXAMINATION: VITAL SIGNS: Temperature of 98, pulse 100, respirations 20, blood pressure 120/57. GENERAL: She is awake, alert, and oriented x3. Does not appear in any distress. CV: S1 and S2 present. No murmurs, rubs, or gallops. LUNGS: She has mild rhonchi, which has much greatly improved. EXTREMITIES: No edema. Pedal pulses are present x2. NEUROVASCULAR: No focal deficits noted. HOME MEDICATIONS: 1. Atorvastatin 10 mg at bedtime. 2. Ceftin 250 mg b.i.d. 3. Pepcid 20 mg b.i.d. 4. DuoNebs 3 mL neb q.i.d. p.r.n. 5. Keppra 500 mg b.i.d. 6. Medrol Dosepak 4 mg one pack. 7. Iron 18 mg p.o. daily. FOLLOWUP: Again, she will follow up with her primary care doctor as an outpatient. The patient also is advised to eat banana everyday for mild low potassium. Job ID: [id number]
== END 2018-05-01 13:15 | disposition home or self-care (01) | DRG 871 ==
LOC: ERS 08:36 → EDBD 11:50 → ERHOLD 11:50 → 2NO 17:06
PROVIDERS: ADMIT Internal Medicine; ATTEND Internal Medicine
DX: A41.9 Sepsis, unspecified organism (principal); G93.41 Metabolic encephalopathy; N39.0 Urinary tract infection, site not specified; E22.2 Syndrome of inappropriate secretion of antidiuretic hormone; K76.0 Fatty (change of) liver, not elsewhere classified; G40.909 Epilepsy, unspecified, not intractable, without status epilepticus; E87.8 Other disorders of electrolyte and fluid balance, not elsewhere classified; R60.9 Edema, unspecified; D64.9 Anemia, unspecified
CPT/HCPCS: 36415; 51701; 70450; 70553; 71045; 76705; 80048; 80053; 80177; 80202; 81003; 81015; 82533; 83605; 83880; 83930; 83935; 84132; 84182; 84295; 84300; 84443; 85025; 87040; 87077; 87086; 87186; 93005; 94640; 96360; 96365; 96367; A4353; G8978-GP-CJ; G8978-GP-CL; G8979-GP-CI; G8979-GP-CJ; G8987-GO-CJ; G8988-GO-CI; J0696; J1650; J1940; J1956; J3370; J7050; J7506; J7620; S0028

== ENCOUNTER 2023-03-14 12:56 | Inpatient (IN) | payer MEDICAID, SELFPAY ==
[2023-03-14 13:23] LABS: #Eosinphils 0.1 thou/uL (0.0-0.7); #Monocytes 0.5 thou/uL (0.11-0.59); #Neutrophils 7.5 thou/uL (1.40-6.50); %Basophils 0.4 % (0.0-1.0); %Eosinophils 1.2 % (0.0-10.0); %Monocytes 5.3 % (0.0-10.0); %Neutrophils 76.7 % (42.0-75.0); Hematocrit 32.2 % (36.0-47.0); Hemoglobin 11.2 g/dL (12.0-16.0); Mean Corpuscular HGB CONC 34.8 g/dL (32.0-36.0); Mean Corpuscular Hemoglobin 29.6 pg (27.0-31.0); Mean Corpuscular Volume 85.2 fl (78.0-98.0); Platelet Count 328 10x3/uL (130-400); RBC Distribution Width 13.2 % (11.5-14.5); Red Blood Cell (RBC) Count 3.78 mill/uL (4.20-5.40); White Blood Cell (WBC) Count 9.8 10x3/uL (4.8-10.8)
[2023-03-14 13:36] LABS: INR-International Normal Ratio 0.9; Prothrombin Time 12.6 sec (12.0-14.7)
[2023-03-14 13:43] LABS: ALT (SGPT) 12 U/L (8-55); AST (SGOT) 23 U/L (5-34); Albumin 4.8 g/dL (3.4-4.8); Alkaline Phosphatase 142 U/L (40-110); Anion Gap 15 mmol/L (10-20); BUN (Urea Nitrogen) 8 mg/dL (9.8-20.1); Bilirubin, Total 0.5 mg/dL (0.2-1.2); CK (CPK) 102 U/L (29-168); Calc. Creatinine Clearance 0 mL/min (70-130); Calcium 9.4 mg/dL (7.8-10.44); Carbon Dioxide 22 mmol/L (23-31); Chloride 87 mmol/L (98-107); Estimated GFR 59; Globulin 3.3 g/dL (2.4-3.5); Glucose 127 mg/dL (83-110); Potassium 4.2 mmol/L (3.5-5.1); Protein, Total 8.1 g/dL (5.8-8.1); Sodium 120 mmol/L (136-145)
[2023-03-14] MEDS ORDERED: Ondansetron PF 4 MG/2 ML Vial ONE (13:55)
[2023-03-14] MEDS ORDERED: levETIRAcetam 500 MG/5 ML VIAL ONE (13:55)
[2023-03-14] MEDS ORDERED: Acetaminophen 500 MG TAB ONE (14:34)
[2023-03-14] MEDS ORDERED: Acetaminophen 325 MG TAB PO PRN (15:42)
[2023-03-14] MEDS ORDERED: HYDROcodone/Acetaminophen 5/325 mg Tablet PO PRN (15:42)
[2023-03-14] MEDS ORDERED: Ondansetron PF 4 MG/2 ML Vial IVP PRN (15:42)
[2023-03-14 17:57] VITALS: BMI 17.6
[2023-03-14 18:56] LABS: Anion Gap 10 mmol/L (10-20); BUN (Urea Nitrogen) 7 mg/dL (9.8-20.1); Calc. Creatinine Clearance 38 mL/min (70-130); Calcium 8.3 mg/dL (7.8-10.44); Carbon Dioxide 24 mmol/L (23-31); Chloride 89 mmol/L (98-107); Estimated GFR 76; Glucose 115 mg/dL (83-110); Potassium 4.1 mmol/L (3.5-5.1)
[2023-03-14 19:14] LABS: Sodium 119 mmol/L (136-145)
[2023-03-14] MEDS ORDERED: Sodium Chloride 3% 100 ML IVPB SCH (20:00)
[2023-03-14] MEDS: levETIRAcetam 500 MG TAB PO SCH (20:26)
[2023-03-14 22:00] LABS: Anion Gap 11 mmol/L (10-20); BUN (Urea Nitrogen) 8 mg/dL (9.8-20.1); Calc. Creatinine Clearance 39 mL/min (70-130); Calcium 8.2 mg/dL (7.8-10.44); Carbon Dioxide 21 mmol/L (23-31); Chloride 91 mmol/L (98-107); Estimated GFR 78; Glucose 110 mg/dL (83-110); Potassium 3.6 mmol/L (3.5-5.1)
[2023-03-14 22:13] LABS: Sodium 119 mmol/L (136-145)
[2023-03-15 02:16] LABS: Anion Gap 12 mmol/L (10-20); BUN (Urea Nitrogen) 9 mg/dL (9.8-20.1); Calc. Creatinine Clearance 38 mL/min (70-130); Calcium 8.2 mg/dL (7.8-10.44); Carbon Dioxide 22 mmol/L (23-31); Chloride 92 mmol/L (98-107); Estimated GFR 75; Glucose 116 mg/dL (83-110); Potassium 3.7 mmol/L (3.5-5.1); Sodium 122 mmol/L (136-145)
[2023-03-15 05:06] LABS: #Eosinphils 0.2 thou/uL (0.0-0.7); #Monocytes 0.3 thou/uL (0.11-0.59); #Neutrophils 2.7 thou/uL (1.40-6.50); %Basophils 0.6 % (0.0-1.0); %Eosinophils 4.3 % (0.0-10.0); %Lymphocytes 30.4 % (21.0-51.0); %Monocytes 6.6 % (0.0-10.0); %Neutrophils 57.9 % (42.0-75.0); Hematocrit 25.8 % (36.0-47.0); Mean Corpuscular HGB CONC 34.9 g/dL (32.0-36.0); Mean Corpuscular Hemoglobin 29.6 pg (27.0-31.0); Mean Corpuscular Volume 84.9 fl (78.0-98.0); Mean Platelet Volume 8.8 fL (7.4-10.4); Platelet Count 324 10x3/uL (130-400); RBC Distribution Width 13.1 % (11.5-14.5); Red Blood Cell (RBC) Count 3.04 mill/uL (4.20-5.40); White Blood Cell (WBC) Count 4.7 10x3/uL (4.8-10.8)
[2023-03-15 05:34] LABS: Anion Gap 9 mmol/L (10-20); BUN (Urea Nitrogen) 8 mg/dL (9.8-20.1); Calc. Creatinine Clearance 38 mL/min (70-130); Calcium 8.3 mg/dL (7.8-10.44); Carbon Dioxide 23 mmol/L (23-31); Chloride 91 mmol/L (98-107); Estimated GFR 75; Glucose 92 mg/dL (83-110); Potassium 3.8 mmol/L (3.5-5.1)
[2023-03-15 05:36] LABS: Sodium 119 mmol/L (136-145)
[2023-03-15] MEDS ORDERED: Sodium Chloride 3% 100 ML IVPB SCH ×2 (06:30→17:00)
[2023-03-15] MEDS: levETIRAcetam 500 MG TAB PO SCH ×2 (08:33→20:40)
[2023-03-15 12:24] LABS: Bacteria/HPF None Seen HPF (None Seen); Bilirubin Negative (Negative); Blood, Urine Negative (Negative); CAUTI Indications for Culture Alt mental st,lethar; Clarity Clear (Clear); Glucose, Urine (Dipstick) Normal (Negative); Ketone, Urine Negative (Negative); Leukocyte Negative Leu/uL (Negative); Nitrite Negative (Negative); Protein, Urine (Dipstick) Negative (Neg-Trace); RBC/HPF None Seen HPF (0-3); Specific Gravity, Urine 1.014 (1.002-1.036); Squamous Epithelial None Seen HPF (0-3); Urobilinogen Normal mg/dL (Less than 2); WBC/HPF 0-3 HPF (0-3); pH, Urine 6.5 (5.0-9.0)
[2023-03-15 12:25] LABS: Urine Culture Reflex No No
[2023-03-15 13:50] LABS: Anion Gap 12 mmol/L (10-20); BUN (Urea Nitrogen) 10 mg/dL (9.8-20.1); Calc. Creatinine Clearance 32 mL/min (70-130); Calcium 8.7 mg/dL (7.8-10.44); Carbon Dioxide 21 mmol/L (23-31); Chloride 94 mmol/L (98-107); Estimated GFR 62; Glucose 93 mg/dL (83-110); Potassium 3.8 mmol/L (3.5-5.1); Sodium 123 mmol/L (136-145)
[2023-03-15 16:53] LABS: Anion Gap 11 mmol/L (10-20); BUN (Urea Nitrogen) 10 mg/dL (9.8-20.1); Calc. Creatinine Clearance 31 mL/min (70-130); Calcium 8.8 mg/dL (7.8-10.44); Carbon Dioxide 24 mmol/L (23-31); Chloride 91 mmol/L (98-107); Estimated GFR 58; Glucose 88 mg/dL (83-110); Potassium 3.8 mmol/L (3.5-5.1); Sodium 122 mmol/L (136-145)
[2023-03-15 22:14] LABS: Anion Gap 11 mmol/L (10-20); BUN (Urea Nitrogen) 11 mg/dL (9.8-20.1); Calc. Creatinine Clearance 33 mL/min (70-130); Calcium 8.7 mg/dL (7.8-10.44); Carbon Dioxide 23 mmol/L (23-31); Chloride 93 mmol/L (98-107); Estimated GFR 65; Glucose 105 mg/dL (83-110); Potassium 3.8 mmol/L (3.5-5.1); Sodium 123 mmol/L (136-145)
[2023-03-16 05:20] LABS: #Eosinphils 0.3 thou/uL (0.0-0.7); #Monocytes 0.4 thou/uL (0.11-0.59); #Neutrophils 2.7 thou/uL (1.40-6.50); %Basophils 0.8 % (0.0-1.0); %Eosinophils 5.2 % (0.0-10.0); %Lymphocytes 31.1 % (21.0-51.0); %Monocytes 7.2 % (0.0-10.0); %Neutrophils 55.5 % (42.0-75.0); Hematocrit 26.6 % (36.0-47.0); Hemoglobin 8.9 g/dL (12.0-16.0); Mean Corpuscular HGB CONC 33.5 g/dL (32.0-36.0); Mean Corpuscular Hemoglobin 29.7 pg (27.0-31.0); Mean Corpuscular Volume 88.7 fl (78.0-98.0); Mean Platelet Volume 9.2 fL (7.4-10.4); Platelet Count 308 10x3/uL (130-400); RBC Distribution Width 13.4 % (11.5-14.5); White Blood Cell (WBC) Count 4.8 10x3/uL (4.8-10.8)
[2023-03-16 05:44] LABS: Anion Gap 10 mmol/L (10-20); BUN (Urea Nitrogen) 10 mg/dL (9.8-20.1); Calc. Creatinine Clearance 36 mL/min (70-130); Carbon Dioxide 23 mmol/L (23-31); Chloride 93 mmol/L (98-107); Sodium 122 mmol/L (136-145)
[2023-03-16 05:45] LABS: Calcium 8.5 mg/dL (7.8-10.44); Estimated GFR 71; Glucose 85 mg/dL (83-110)
[2023-03-16] MEDS: Sodium Chloride 1 GM TAB PO SCH ×3 (08:58→20:47)
[2023-03-16] MEDS: levETIRAcetam 500 MG TAB PO SCH ×2 (08:58→20:47)
[2023-03-16] MEDS ORDERED: Megestrol Acetate 400 MG/10 ML UDCUP PO SCH (12:36)
[2023-03-16 16:33] LABS: Anion Gap 13 mmol/L (10-20); BUN (Urea Nitrogen) 10 mg/dL (9.8-20.1); Calc. Creatinine Clearance 36 mL/min (70-130); Calcium 8.8 mg/dL (7.8-10.44); Carbon Dioxide 25 mmol/L (23-31); Chloride 93 mmol/L (98-107); Estimated GFR 71; Glucose 104 mg/dL (83-110); Sodium 127 mmol/L (136-145)
[2023-03-17 05:23] LABS: Anion Gap 10 mmol/L (10-20); BUN (Urea Nitrogen) 16 mg/dL (9.8-20.1); Calc. Creatinine Clearance 35 mL/min (70-130); Carbon Dioxide 24 mmol/L (23-31); Chloride 98 mmol/L (98-107); Estimated GFR 69; Glucose 115 mg/dL (83-110); Potassium 4.3 mmol/L (3.5-5.1); Sodium 128 mmol/L (136-145); Uric Acid 2.6 mg/dL (2.6-6.0)
[2023-03-17] MEDS: levETIRAcetam 500 MG TAB PO SCH ×2 (09:11→20:28)
[2023-03-17] MEDS: Sodium Chloride 1 GM TAB PO SCH ×3 (09:12→20:28)
[2023-03-17] MEDS: Megestrol Acetate 400 MG/10 ML UDCUP PO SCH (09:12)
[2023-03-18 05:18] LABS: Anion Gap 13 mmol/L (10-20); BUN (Urea Nitrogen) 23 mg/dL (9.8-20.1); Calc. Creatinine Clearance 33 mL/min (70-130); Calcium 9.2 mg/dL (7.8-10.44); Carbon Dioxide 23 mmol/L (23-31); Chloride 102 mmol/L (98-107); Estimated GFR 65; Glucose 103 mg/dL (83-110); Potassium 4.4 mmol/L (3.5-5.1); Sodium 134 mmol/L (136-145)
[2023-03-18] MEDS ORDERED: Ferrous Gluconate 324 MG TAB PO SCH (08:00)
[2023-03-18] MEDS: levETIRAcetam 500 MG TAB PO SCH (08:41)
[2023-03-18] MEDS: Sodium Chloride 1 GM TAB PO SCH (08:43)
[2023-03-18] MEDS: Megestrol Acetate 400 MG/10 ML UDCUP PO SCH (08:43)
[2023-03-18] MEDS ORDERED: Multivitamin W/ Minerals 1 TAB PO SCH (09:00)
[2023-03-18] MEDS ORDERED: Folic Acid 1 MG TAB PO SCH (09:00)
[2023-03-18 12:12] VITALS: BP 122/69; TEMP 98.1
== END 2023-03-18 12:09 | disposition home or self-care (01) | DRG 100 ==
LOC: ERS 12:56 → 2SE 15:42
PROVIDERS: ADMIT Family Medicine; ATTEND Family Medicine
DX: G40.909 Epilepsy, unspecified, not intractable, without status epilepticus (principal); G93.41 Metabolic encephalopathy; E22.2 Syndrome of inappropriate secretion of antidiuretic hormone; R18.8 Other ascites; Z87.440 Personal history of urinary (tract) infections; Z79.899 Other long term (current) drug therapy; D64.9 Anemia, unspecified; E87.8 Other disorders of electrolyte and fluid balance, not elsewhere classified; F03.90 Unspecified dementia, unspecified severity, without behavioral disturbance, psychotic disturbance, mood disturbance, and anxiety; R53.81 Other malaise
CPT/HCPCS: 36415; 70450; 80048; 80053; 80177; 82550; 83930; 83935; 84300; 84443; 84550; 85025; 85610; 85730; 96365; 96375; J1650; J1953; J2405; J7131

== ENCOUNTER 2023-07-14 14:37 | Emergency (ER) | payer MEDICAID ==
[2023-07-14 16:00] LABS: #Eosinphils 0.2 thou/uL (0.0-0.7); #Monocytes 0.3 thou/uL (0.11-0.59); %Basophils 0.6 % (0.0-1.0); %Eosinophils 3.2 % (0.0-10.0); %Lymphocytes 33.3 % (21.0-51.0); %Monocytes 6.1 % (0.0-10.0); %Neutrophils 56.4 % (42.0-75.0); Hematocrit 29.2 % (36.0-47.0); Hemoglobin 9.6 g/dL (12.0-16.0); Mean Corpuscular HGB CONC 32.9 g/dL (32.0-36.0); Mean Corpuscular Hemoglobin 30.3 pg (27.0-31.0); Mean Corpuscular Volume 92.1 fl (78.0-98.0); Mean Platelet Volume 9.3 fL (7.4-10.4); Platelet Count 314 10x3/uL (130-400); RBC Distribution Width 13.1 % (11.5-14.5); Red Blood Cell (RBC) Count 3.17 mill/uL (4.20-5.40); White Blood Cell (WBC) Count 5.3 10x3/uL (4.8-10.8)
[2023-07-14 16:38] LABS: ALT (SGPT) 24 U/L (8-55); AST (SGOT) 30 U/L (5-34); Albumin 3.6 g/dL (3.4-4.8); Alkaline Phosphatase 167 U/L (40-110); Anion Gap 12 mmol/L (10-20); BUN (Urea Nitrogen) 14 mg/dL (9.8-20.1); Bilirubin, Total 0.4 mg/dL (0.2-1.2); Calc. Creatinine Clearance 0 mL/min (70-130); Calcium 8.8 mg/dL (7.8-10.44); Carbon Dioxide 23 mmol/L (23-31); Chloride 102 mmol/L (98-107); Estimated GFR 78; Globulin 3.2 g/dL (2.4-3.5); Glucose 100 mg/dL (83-110); Potassium 3.8 mmol/L (3.5-5.1); Protein, Total 6.8 g/dL (5.8-8.1); Sodium 133 mmol/L (136-145)
[2023-07-14 16:42] LABS: Troponin I Less than 0.010 ng/mL (< 0.028)
[2023-07-14 17:58] LABS: Magnesium 1.9 mg/dL (1.6-2.6)
[2023-07-14 18:22] LABS: Bacteria/HPF None Seen HPF (None Seen); Bilirubin Negative (Negative); Blood, Urine Negative (Negative); CAUTI Indications for Culture Dysuria,urgency,freq; Clarity Clear (Clear); Glucose, Urine (Dipstick) Normal (Negative); Ketone, Urine Negative (Negative); Leukocyte 75 Leu/uL (Negative); Nitrite Negative (Negative); Protein, Urine (Dipstick) Negative (Neg-Trace); RBC/HPF 0-3 HPF (0-3); Specific Gravity, Urine 1.022 (1.002-1.036); Squamous Epithelial 0-3 HPF (0-3); Urobilinogen Normal mg/dL (Less than 2); pH, Urine 5.5 (5.0-9.0)
[2023-07-14 18:28] LABS: Urine Culture Reflex No No
[2023-07-14 18:51] LABS: SARS-CoV-2 NAA Rapid Test Not Detected (NotDetected)
== END 2023-07-14 21:26 | disposition home or self-care (01) ==
LOC: ERS 14:37
DX: N39.0 Urinary tract infection, site not specified (principal); E87.1 Hypo-osmolality and hyponatremia; G40.909 Epilepsy, unspecified, not intractable, without status epilepticus; R54 Age-related physical debility; Z79.899 Other long term (current) drug therapy
CPT/HCPCS: 36415; 70450; 71045; 80053; 81001; 83735; 84484; 85025; 93005